=== PATIENT | female | born 1945 | race Caucasian/White ===

== ENCOUNTER → 2024-01-22 07:41 | Outpatient (REF) | payer MEDICARE, OTHER, SELFPAY | LOC: RAD 07:41 | PROVIDERS: ATTENDING PHYSICIAN Internal Medicine | DX: M81.0 Age-related osteoporosis without current pathological fracture (principal) | CPT/HCPCS: 77080 ==

== ENCOUNTER 2024-03-02 20:04 | Emergency (ER) | payer MEDICARE, OTHER, SELFPAY ==
[2024-03-02 20:15] VITALS: BP 175/83
--- NOTE | 2024-03-02 21:43 | ED.MUSCINJ ---
HPI-Injury
General
Chief Complaint: Fall
Source: patient
Exam Limitations: none
Time Seen by Provider: 03/02/24 20:37
Nursing documentation reviewed up to this point in time: agreed with
Travel History
Have you had any contact with someone who has COVID-19?: No
Do you have any symptoms of coronavirus? Fever > 100 degrees, chills, cough, shortness of breath, sore throat, loss of taste or smell, muscle aches, or headache?: No
History of Present Illness-Injury
Is this injury a work related problem?: No
Is pt an associate of [facility]?: No
Initial Injury comments:
Patient to ED with complaint of pain to her right knee. States she slpped and fell. Fell onto her knee on tile floor. Injury occurred this evening. Brought to ED by spouse for eval.
Past History
Past History
ED Past Medical History: None
Review of Systems
Review of Systems
Allergies reviewed?: Yes
All Other Systems: ROS reviewed and negative except as documented in HPI and ROS
Constitutional: Reports no symptoms
Musculoskeletal: Reports joint pain (Pain to right knee)
Skin: Reports no symptoms
Neurological: Reports no symptoms
Psychiatric: Reports no symptoms
Musculoskeletal Injury Exam
Musculoskeletal Injury Exam
Right Knee:
Pain with Movement?: Moderate
Tender to palpation?: Moderate
Soft tissue swelling?: Mild
External deformity and angulation?: None
Joint effusion?: None
Contusion?: Moderate
Hematoma-local bleeding into tissue?: Moderate
Crepitus with movement?: No
Joint instability?: No
Malalignment/deformity?: No
Range of motion: Limited
Distal skin color and temperature: normal-warm & good color
Capillary Refill: normal
Normal distal neurovascular exam?: Yes
Phy Exam
General Physical Exam
General Presentation: well appearing and no apparent distress
General age: appears stated age
General Skin: warm and dry
General Habitus: normal
General Mental: alert
Musculoskeletal Exam
Musculoskeletal Exam: neuro vasc intact and other (No pain to foot/ankle, hip.)
Skin Exam
Skin Exam: normal color, warm/dry and no rash
Psychiatric Exam
Psychiatric Exam: normal mood/affect
Injury Course
Orders/Labs/Results
Orders:
Orders
03/02/24 20:19
Knee, Right 4 or More Views [CR Knee- Right 4 Or More View*] Urgent
Comment:
Reason For Exam: fall
03/02/24 21:17
Knee Immobilizer Right-Treatme ONCE
*Radiology
Radiology exam reviewed: radiology read reviewed
*Pulse Oximetry
Patient hypoxic: no
*Critical Care Note
Total Time (30-74mins, 75-104mins- exclusive of procedures): Not Applicable
ED Attending Note
-
Portions of this chart may have been created with voice recognition software.� Occasional wrong word or��sound alike� substitutions may have occurred due to the inherent limitations of voice recognition software.
Discharge Plan
Departure
Patient Disposition: Home (Routine Discharge)
Date of Disposition: 03/02/24
Time of Disposition: 21:17
Patient with high blood pressure during this ER visit?: No
Condition: Good
Covid-19: Not Applicable
Discharge Problem:
Patella fracture
Instructions: Knee Immobilizer (DC), Patella Fracture (DC), Contusion (DC), Preventing falls in adults, Using Cold for Pain
Prescriptions:
No Action
Fosamax Plus D
70 mg PO WEEKLY
hydromorphone 2 MG tablet
2 mg PO PRN (Reason: RIGHT ANKLE PAIN)
Patient Comments:
'NOT FOR WEEKS'
Calcium
1 tab PO DAILY PRN
Patient Comments:
'NOT EVERYDAY'
Vitamin D
1 tab PO DAILY PRN
Patient Comments:
'WHEN I REMEMBER'
Referrals:
Donal Oliver MD [Active] - Call in 1-3 days for appt
Beth Cruz MD [Family Provider] -
Interventions
Interventions:
*Risk Screen - Suicide Last Done: 03/02/24 20:15
*General Assessment Last Done: 03/02/24 20:15
*ED COVID-19 Vaccine History Last Done: 03/02/24 20:15
ED-Musculoskeletal Assessment Last Done: 03/02/24 20:44
ED- Neurological Assessment Last Done: 03/02/24 20:44
ED-Skin Assessment Last Done: 03/02/24 20:44
Discharge Date and Time
Print Language: MALAY
[2024-03-02 21:59] VITALS: BP 164/95
[2024-03-02 22:07] VITALS: BP 164/95
== END 2024-03-02 22:07 | disposition home or self-care (01) ==
LOC: EMR 20:04
PROVIDERS: EMERGENCY PHYSICIAN Emergency Medicine; FAMILY PHYSICIAN Internal Medicine
DX: S82.041A Displaced comminuted fracture of right patella, initial encounter for closed fracture (principal); W18.39XA Other fall on same level, initial encounter
CPT/HCPCS: 99283; 29505; 73564

== ENCOUNTER 2024-03-06 15:54 | Inpatient (IN) | payer MEDICARE, OTHER, SELFPAY ==
[2024-03-06] VITALS (8 sets, daily range): BP systolic 124–144; BP diastolic 52–83; BMI 31.6; BMI 30.4
--- NOTE | 2024-03-06 10:29 | ED.GENMED ---
History of Present Illness
General
Chief Complaint: Dizziness
Source: patient
Exam Limitations: none
Time Seen by Provider: 03/06/24 10:29
History of Present Illness
History of Present Illness:
See MDM
Past History
Past History
ED Past Medical History: None
ED Past Surgical History: Orthopedic
Phy Exam
Physical Exam
Physical Exam:
See MDM
Scores
[id number] Score for Afib Stroke Risk
Age in Years (65=0, 65-74=1, >/=75=2): > or = 75
Sex (Female=+1): Female
Congestive Heart Failure History (Yes=+1): No
Hypertension History (Yes=+1): Yes
Stroke/TIA/Thromboembolism History (Yes=+2): Yes
Vascular Disease History (Yes=+1): No
Diabetes Mellitus (Yes=+1): No
Score: 6
Anticoagulation Recommendations: Recommend anticoagulation (as validated in nonvalvular fib)
Course
Orders/Labs/Results
Orders:
Orders
03/06/24 10:41
Electrocardiogram (*1) Urgent
Reason for Study: Vertigo / Dizzy
CT Head W/o Iv Contrast Urgent
Comment:
Reason For Exam: Dizzy
EKG- Treatment ONCE
0.9% Sodium Chloride 1000 ml [Nss] 1,000 ml IV BOLUS
Meclizine [Antivert] 25 mg PO NOW STA
Ondansetron Injectable [Zofran] 4 mg IV NOW STA
03/06/24 10:48
Complete Blood Count/With Diff Urgent
Comprehensive Metabolic Panel Urgent
03/06/24 11:27
diazePAM [Valium Injection] 2 mg IV NOW STA
03/06/24 15:10
Apixaban [Eliquis] 2.5 mg PO ONCE ONE
diazePAM [Valium Injection] 2 mg IV NOW STA
Abnormal Lab Results
03/06/24
10:48
MCH 32.0 H pg
(27.0-31.0)
BUN 21 H mg/dl
(7-17)
Glucose 133 H mg/dl
(70-99)
03/06/24 10:48
03/06/24 10:48
Vital Signs
Initial and Last Documented VS:
Initial Vital Signs
Temp Pulse Resp Pulse Ox
97.5 F 97 16 95
03/06/24 10:30 03/06/24 10:30 03/06/24 10:30 03/06/24 10:30
Last Documented Vital Signs
Temp Pulse Resp BP Pulse Ox
97.5 F 113 13 130/78 96
03/06/24 10:30 03/06/24 13:45 03/06/24 13:45 03/06/24 14:14 03/06/24 14:09
MDM/Problems Addressed
Differential Diagnosis Includes:
HPI and MDM Narrative:
78-year-old female presenting with sudden onset of dizziness. Patient denies prior history of vertigo. She is nauseous. EMS provided IV Zofran. On arrival, patient is somewhat uncomfortable appearing. She does have her eyes closed. When she
opens her eyes, she has a obvious nystagmus. It is worse with eye movement to the right. EOMI otherwise. TMs clear. She has normal finger-nose bilaterally. Given her age and new onset vertigo, will obtain CT head. Will give trial of meclizine.
If the patient remains symptomatic, will give Valium
Physical exam
General: Well appearing and non-toxic
HEENT: protecting airway. TMs clear. Horizontal nystagmus to the right
Neck: supple
CV: No evidence of cyanosis. Regular rate. Irregular rhythm
Resp: No accessory muscle use
Abd: Non-distended
Extremities: Right knee immobilizer in place. Both distal legs neurovascular intact
Neuro: alert
Psych: Normal affect
Skin: Intact
Problems Addressed including Acute and Chronic Conditions affecting care:
1. Dizziness
Acuity: acute
Prognosis: stable
Details: Likely related to peripheral vertigo. Will give meclizine and obtain CT
2. Nausea
Acuity: acute
Prognosis: stable
Details: Will give Zofran
3. New onset A-fib
Acuity: acute
Prognosis: stable
Details: Unsure of the timeline. Currently rate controlled and stable
Updates
After meclizine, patient still symptomatic. Will give dose of Valium
2 PM on reassessment after Valium, nystagmus has completely resolved and patient feeling better. Patient ambulating to the bathroom on her own
3:15 PM as patient was being discharged, the vertigo returned and she is too unsteady to did be discharged. Will give another dose of Valium and will start Eliquis given new onset A-fib
Differential Diagnosis (but not limited to): BPPV, meningitis, CVA
Testing considered: Troponin
Drug therapy (if applicable): OTC meds, please see d/c instruction regarding Rx drugs
Amount and/or Complexity of Data Reviewed
Clinical info obtained from: Patient
External data reviewed: N/A
Labs I independently reviewed (but not limited to): Hemoglobin
Radiology: The CT scan was personally and independently reviewed. In addition, official CT report reviewed.
Pulse Ox: not hypoxic
EKG independently reviewed: A-fib, normal axis, no STEMI
Travel Sales Consultant: A-fib
Critical Care: N/A
Risk of Complication:
Social Determinants of health: Good social support
Discussed with other providers: Hospitalist
Escalation of Care includes Admit/Obs: Given the recurrent vertigo, will admit
Occasional wrong word or 'sound a like' substitutions may have occurred due to the inherent limitations of voice recognition software. Read the chart carefully and recognize, using context, where substitutions have occurred.
*Critical Care Note
Total Time (30-74mins, 75-104mins- exclusive of procedures): Not Applicable
ED Attending Note
-
Portions of this chart may have been created with voice recognition software.� Occasional wrong word or��sound alike� substitutions may have occurred due to the inherent limitations of voice recognition software.
Discharge Plan
Departure
Patient Disposition: Admit
Date of Disposition: 03/06/24
Time of Disposition: 14:24
Admit to: Telemetry
Presentation/result/management discussed w/ accepting MD/DO: Hospitalist
Patient with high blood pressure during this ER visit?: No
Discharge Problem:
Vertigo, New onset a-fib
Prescriptions:
New
diazepam [Valium] 2 mg tablet
2 mg PO BID PRN (Reason: dizziness) Qty: 10 0RF
No Action
simvastatin 20 mg Tablet
20 mg PO HS
multivitamin Capsule
1 cap PO HS
losartan-hydrochlorothiazide 100-12.5 mg Tablet
1 tab PO HS
[id number]-Yskogxrps serr [Osteo Bi-Flex (5-Loxin)] 1,500-400-100 mg-unit-mg Tablet
1 tab PO HS
Azo Cranberry 250 mg Tablet,Chewable
750 mg PO HS
Referrals:
Beth Cruz MD [Family Provider] -
Interventions
Interventions:
*Risk Screen - Suicide Last Done: 03/06/24 10:30
*General Assessment Last Done: 03/06/24 10:30
*Neglect/Abuse Screening Last Done: 03/06/24 10:30
ED- Fall Risk Assessment Last Done: 03/06/24 10:37
*ED COVID-19 Vaccine History Last Done: 03/06/24 10:30
ED- Neurological Assessment Last Done: 03/06/24 10:30
ED- Cardiac Assessment Last Done: 03/06/24 10:30
ED Swallowing Screen Last Done: 03/06/24 10:37
Discharge Date and Time
Print Language: SETSWANA
[2024-03-06] MEDS: NSS 1000 IV (10:50)
[2024-03-06] MEDS: ANTIVERT 25 MG PO (10:57)
[2024-03-06] MEDS: ZOFRAN 4 MG IV (10:58)
[2024-03-06 11:04] LABS: % Basophils 1.4 % (0-2); % Eosinophils 2.6 % (0-6); % Immature Granulocytes 0.3 % (0-0.5); % Lymphocytes 35.9 % (20.5-51.1); % Monocytes 6.6 % (1.7-9.3); % Neutrophils 53.2 % (42.2-75.2); Absolute Basophils 0.1 10^3/uL (0-0.2); Absolute Eosinophils 0.2 10^3/uL (0-0.7); Absolute Lymphocytes 2.6 10^3/uL (1.2-3.4); Absolute Monocytes 0.5 10^3/uL (0.1-0.6); Absolute Neutrophils 3.9 10^3/uL (1.4-6.5); Hematocrit 40.5 % (37.0-47.0); Hemoglobin 14.1 g/dL (12.0-16.0); Mean Corp Hgb Conc. 34.8 g/dL (33.0-37.0); Mean Platelet Volume 9.9 fL (7.4-10.4); Nucleated Red Blood Cells % 0 %; Platelet Count 288 10^3/uL (130-400); Red Cell Dist. Width 12.6 % (11.5-14.5); White Blood Cell Count 7.2 10^3/uL (4.8-10.8)
[2024-03-06 11:19] LABS: ALT (SGPT) 18 U/L (0-35); AST (SGOT) 32 U/L (14-36); Albumin 3.7 g/dl (3.5-5.0); Alkaline Phosphatase 73 U/L (38-126); Blood Urea Nitrogen 21 mg/dl (7-17); Calcium 9.6 mg/dl (8.4-10.2); Carbon Dioxide 26 mmol/L (22-30); Chloride 106 mmol/L (98-107); Estimated Creatinine Clearance 54 ml/min; Glucose 133 mg/dl (70-99); Sodium 139 mmol/L (135-145); Total Bilirubin 0.9 mg/dl (0.2-1.3); Total Protein 6.3 g/dl (6.3-8.2); eGFR > 60.00
[2024-03-06] MEDS: VALIUM INJECTION 2 MG IV ×2 (11:51→15:22)
--- NOTE | 2024-03-06 15:15 | HPS.HSE ---
Addendum entered and electronically signed by Ildefonso Clements MD 03/06/24 16:32:
I saw and examined the patient.
The SEA[employer] SERVICE MEAT MANAGER or PA's note was reviewed and I agree with the note.
Comment:
Patient is a pleasant 78 years old with history of hyperlipidemia, osteoporosis, hypertension who came to the ER with dizziness/lightheadedness/headache found to be in new onset A-fib with RVR, patient also was complaining of nausea, received
Eliquis in the ER.
CT head negative
By the time I saw the patient she was in sinus rhythm.
Physical exam:
GENERAL : Patient is awake, alert, oriented x3
HEENT: Nonicteric sclerae, PERRLA, EOMI. Oropharynx clear. Moist mucous membranes. Conjunctivae appear well perfused.
CHEST: Chest wall is nontender.
HEART: Regular rate and rhythm without murmurs.
LUNGS: Clear to auscultation bilaterally.
ABDOMEN: Soft, positive bowel sounds, nontender, no organomegaly.
RECTAL: Deferred.
SKIN: No rash, no excessive bruising, petechiae, or purpura.
NEUROLOGIC: Cranial nerves II-XII intact without motor/sensory deficit.
Assessment/plan:
media monitor.
Echocardiogram.
Cardiology consult pending
MRI brain
Original Note:
Family Physician
-
Family Physician: Beth Cruz
Chief Complaint
-
dizzy
JOHNSON
blurry vision
History of Present Illness
78-year-old with past medical history for hyperlipidemia, osteoporosis, hypertension presented to us with acute onset of dizzy, lightheaded, headache dizzy. She felt the room was spinning. Patient also complaining of blurry vision. She was
nauseous and vomited couple times. Patient denied any abdominal pain, diarrhea. Patient denied any fever, chills, chest pain, short of breath. Patient denies any palpitation. Patient denied any dysuria hematuria.
Head CT negative. Patient was noted in A-fib on arrival. Got a dose of Eliquis in the ER. Patient also received meclizine in ER as well as Valium.
had a fall last week, noted to have right patellar fracture.
Medical History
Past Medical History
Past Medical History: Reports Other
Additional Past Medical History:
Hypertension
Hyperlipidemia
Osteopenia
Basal cell cancer
Left volar dislocation
Osteoporosis
hemophilia
Past Surgical History: Reports Other
Additional Past Surgical History:
Right ORIF
Bilateral cataract extraction
Tonsillectomy
Elbow surgery
Social History
Tobacco: Non-smoker
Alcohol: None
Drug: None
Personal:
Living: With Family
Family History
Family History: Not pertinent
Allergies / Home Medications
Allergies reflects when Allergies were last updated in [employer].
Home Medications with original date entered in [employer]
Allergy/Medication List:
Allergies
Allergy/AdvReac Type Severity Reaction Status Date / Time
codeine [Codeine] Allergy NAUSEA AND Verified 03/06/24 10:42
VOMITTING
Home Medications
cranberry fruit concentrate 250 mg chewable tablet (Azo Cranberry) 750 mg PO HS 03/06/24
diazepam 2 mg tablet (Valium) 2 mg PO BID PRN dizziness #10 tabs 03/06/24
glucosamine [id number]-H9-Nohgwhikl celine 1,500 mg-400 unit-100 mg tablet (Osteo Bi-Flex (5-Loxin)) 1 tab PO HS 03/06/24
losartan 100 mg-hydrochlorothiazide 12.5 mg tablet 1 tab PO HS 03/06/24
multivitamin 1 cap PO HS 03/06/24
simvastatin 20 mg tablet 20 mg PO HS 03/06/24
Review of Systems
-
Constitutional: Reports No Symptoms
EENT: Reports No Symptoms
Respiratory: Reports No Symptoms
Cardiac: Reports No Symptoms
Abdomen/GI: Reports No Symptoms
: Reports No Symptoms
Musculoskeletal: Reports No Symptoms
Skin: Reports No Symptoms
Neurological: Reports Dizzy, Headache and Other (Blurry vision)
Endocrine: Reports No Symptoms
Hematologic/Lymphatic: Reports No Symptoms
Psych: Reports No Symptoms
Physical Exam
Vital Signs
Vital Signs
Temp Pulse Resp BP Pulse Ox
97.5 F 113 13 130/78 96
03/06/24 10:30 03/06/24 13:45 03/06/24 13:45 03/06/24 14:14 03/06/24 14:09
Physical Exam
General: Well Developed, Well Nourished and No Apparent Distress
HEENT: NormoCephalic, Moist mucous membranes and Atraumatic
Respiratory: Clear
Cardiac: Irregular Rhythm and Tachycardia; No Murmur or Rub
GI: Soft, Non Tender, Non Distended and Normal Bowel Sounds; No Organomegaly
Rectal: Deferred by Provider
Musculoskeletal: No Clubbing, No Cyanosis, No Edema and Other (Right knee brace in place)
Skin: No Rash
Neuro: AO x 3 and Nonfocal/grossly intact
Psych: Calm
Laboratory Results
-
03/06/24 10:48
03/06/24 10:48
Laboratory Results
Total Bilirubin 0.9 mg/dl (0.2-1.3) 03/06/24 10:48
AST 32 U/L (14-36) 03/06/24 10:48
ALT 18 U/L (0-35) 03/06/24 10:48
Alkaline Phosphatase 73 U/L (38-126) 03/06/24 10:48
Data Reviewed
-
CT Scan: Report Reviewed by me
Lab Data: Labs Reviewed by me
Impression/Plan
-
# New onset atrial fib
-Heart rate in 100-120
-EKG with A-fib
-Obtain echo
-Initiated on Eliquis and metoprolol
-Cardiology consulted
# Vertigo
-CT head negative
-Valium and meclizine in ER
-Received Zofran in ER
-Valium and meclizine continued
-obtain MRI to r/o acute stroke
-PT/OT consult
#right patellar fracture
-has brace in place
#essential HTN
-losartan-hctz continued
#HLD
-statin continued
#DVT Prophylaxis
-eliquis
#coDE status
-full code
[2024-03-06] MEDS: ELIQUIS 2.5 MG PO (15:22)
[2024-03-06] MEDS: LIPITOR 10 MG PO (21:30)
[2024-03-06] MEDS: HYZAAR 100-12.5 TABLET 1 TAB PO (21:32)
[2024-03-07 03:55] VITALS: BP 135/61
[2024-03-07 07:20] VITALS: BP 149/70
[2024-03-07 08:02] LABS: Hematocrit 39.8 % (37.0-47.0); Hemoglobin 13.5 g/dL (12.0-16.0); Mean Corp Hgb Conc. 33.9 g/dL (33.0-37.0); Mean Corpuscular Hgb 32.4 pg (27.0-31.0); Mean Corpuscular Volume 95.4 fL (81.0-99.0); Platelet Count 252 10^3/uL (130-400); Red Blood Cell Count 4.17 10^6/uL (4.20-5.40); Red Cell Dist. Width 12.9 % (11.5-14.5); White Blood Cell Count 7.4 10^3/uL (4.8-10.8)
[2024-03-07 08:46] LABS: Blood Urea Nitrogen 19 mg/dl (7-17); Calcium 9.3 mg/dl (8.4-10.2); Carbon Dioxide 27 mmol/L (22-30); Chloride 104 mmol/L (98-107); Estimated Creatinine Clearance 53 ml/min; Glucose 88 mg/dl (70-99); HDL Cholesterol 55 mg/dl; LDL Cholesterol, Calculated 76 mg/dl; Potassium 3.9 mmol/L (3.5-5.1); Sodium 138 mmol/L (135-145); Total Cholesterol 146 mg/dl (50-199); Triglyceride 75 mg/dl (10-149); Very Low Density Lipoprotein 15 mg/dl (0-30); eGFR > 60.00
[2024-03-07] MEDS: ELIQUIS 5 MG PO (09:14)
[2024-03-07 11:04] VITALS: BP 114/68
--- NOTE | 2024-03-07 12:25 | W.PN.UPDATE ---
Addendum entered and electronically signed by Wolf Sanchez MD 03/07/24 12:30:
Stop ASA
Original Note:
Update Note
Progress Note Update
Consult dictated
New PAF, back to sinus in ER
- [id number] at least 6 (HTN, age2, pulm embolus, female gender) => agree with Eliquis, I reviewed bleeding risks/signs/symptoms
- Can progress to ablation if symptoms warrant or patient desires => more education in my office
- I will again review modifiable AFib risk factors in office (ETOH, sedentary lifestyle, sleep apnea, etc)
New Vertigo, MRI negative
HTN
Mixed hyperlipidemia
We will arrange f/u in my office, echo, and 2 week monitor.
Please call with questions
--- NOTE | 2024-03-07 13:16 | W.PN.HOSP.TC ---
Addendum entered and electronically signed by Fred Manley MD 03/07/24 15:44:
[id number]
Original Note:
Today's Communication/Plan
-
Eliquis
stop ASA
f/u cards for ECHO, 2 week monitor
Assessment / Plan
Assessment / Plan
GENERAL : Patient is awake, alert, oriented x3
HEENT: Nonicteric sclerae, PERRLA, EOMI. Oropharynx clear. Moist mucous membranes. Conjunctivae appear well perfused.
CHEST: Chest wall is nontender.
HEART: Regular rate and rhythm without murmurs.
LUNGS: Clear to auscultation bilaterally.
ABDOMEN: Soft, positive bowel sounds, nontender, no organomegaly.
RECTAL: Deferred.
SKIN: No rash, no excessive bruising, petechiae, or purpura.
NEUROLOGIC: Cranial nerves II-XII intact without motor/sensory deficit.
# New onset atrial fib
-can hold on BB for now as per cardiology- until cardiology f/u
-Start Eliquis 5mg BID
-ECHO and 2 week monitor outpatient
-cards consulted, f/u cards outpatient
# ?Vertigo
-most likely sequela of afib
-cont to monitor outpatient
-PT/OT
-MRI unremarkable for acute pathology
#right patellar fracture
-has brace in place
#essential HTN
-losartan-hctz continued
#HLD
-statin continued
#DVT Prophylaxis
-eliquis
#coDE status
-full code
More than 30 minutes spent in discharge including
Final examination of the patient
Summarizing hospital stay
Instructions for continuing care to all relevant caregivers
Preparation of discharge records, prescriptions, and referral forms
Total time spent (35 in minutes):
Anticipated Discharge: Today
Subjective/Interval History
-
Date of Service: March 07, 2024
No acute events overnight
Objective Data
-
Labs:
Laboratory Results
03/07/24
07:08
WBC 7.4
Hgb 13.5
Hct 39.8
Plt Count 252
Sodium 138
Potassium 3.9
Chloride 104
Carbon Dioxide 27
BUN 19 H
Creatinine 0.8
Glucose 88
Calcium 9.3
Vital Signs:
Vital Signs
Temp Pulse Resp BP Pulse Ox
98 F 72 20 114/68 94
03/07/24 11:04 03/07/24 11:04 03/07/24 11:04 03/07/24 11:04 03/07/24 11:04
Review of Systems
-
History Source: Patient
All other systems: Not reviewed unless documented
Data Reviewed
-
MRI: Image personally visualized and interpreted and Report Reviewed by me
Labs: Labs Reviewed by me
--- NOTE | 2024-03-07 13:21 | W.DS.TRANS ---
DC Summary - Signal Constructor
-
Discharge Instructions:
Discharge Diagnosis/Procedures New onset atrial fibrillation
Diet Low Fat,Low Cholesterol
Activity As tolerated
Instructions:
Stand-Alone Forms:
Changes to Home Medications: Yes
Discharge Medications:
DC Medications w/original date entered in [employer]
Multivitamin Women 50 Plus 1 tab PO 03/06/24
cranberry fruit concentrate 250 mg chewable tablet (Azo Cranberry) 750 mg PO 03/06/24
diazepam 2 mg tablet (Valium) 2 mg PO BID PRN dizziness #10 tabs 03/06/24
glucosamine [id number]-Czqswojfr celine 1,500 mg-400 unit-100 mg tablet (Osteo Bi-Flex (5-Loxin)) 1 tab PO 03/06/24
losartan 100 mg-hydrochlorothiazide 12.5 mg tablet 1 tab PO 03/06/24
simvastatin 20 mg tablet 20 mg PO 03/06/24
apixaban 5 mg tablet (Eliquis) 5 mg PO BID 30 days #60 tabs 03/07/24
Home Medication Changes
apixaban 5 mg tablet (Eliquis) 5 mg PO BID 30 days #60 tabs 03/07/24
Pending Results: No
--- NOTE | 2024-03-07 14:07 | CM ---
Addendum entered by Maura Murphy 03/07/24 14:35:
Patient original pharmacy is closed, patient given coupon [facility]
Original Note:
Patient seen at bedside with patient son also present. Patient lives in a 2 story home with no DME at home. 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 Patient changed Pharmacy to [facility] on [address] in [place]
and it closes at 5pm. CM updated the [facility] system and physician made aware. IMM completed by admissions 03/06/24. Dr. Cruz is the PCP and patient declined needs. CM will continue to follow for discharge planning needs.
Plan; home with no needs.
--- NOTE | 2024-03-07 14:28 | W.DS.TRANS ---
DC Summary - Consultant
-
Discharge Instructions:
Discharge Diagnosis/Procedures New onset atrial fibrillation
Diet Low Fat,Low Cholesterol
Activity As tolerated
Instructions:
Stand-Alone Forms:
Changes to Home Medications: Yes
Discharge Medications:
DC Medications w/original date entered in [employer]
Multivitamin Women 50 Plus 1 tab PO 03/06/24
cranberry fruit concentrate 250 mg chewable tablet (Azo Cranberry) 750 mg PO 03/06/24
diazepam 2 mg tablet (Valium) 2 mg PO BID PRN dizziness #10 tabs 03/06/24
glucosamine [id number]-Fphlxhfzj celine 1,500 mg-400 unit-100 mg tablet (Osteo Bi-Flex (5-Loxin)) 1 tab PO 03/06/24
losartan 100 mg-hydrochlorothiazide 12.5 mg tablet 1 tab PO 03/06/24
simvastatin 20 mg tablet 20 mg PO 03/06/24
apixaban 5 mg tablet (Eliquis) 5 mg PO BID 30 days #60 tabs 03/07/24
Home Medication Changes
apixaban 5 mg tablet (Eliquis) 5 mg PO BID 30 days #60 tabs 03/07/24
Pending Results: No
[2024-03-07 15:08] LABS: TSH Reflex To Free T4 1.59 uIU/ml (0.47-4.68)
== END 2024-03-07 15:25 | disposition home or self-care (01) | DRG 309 ==
LOC: 4 EAST ACU 15:54
PROVIDERS: Registered Nurse; ADMITTING PHYSICIAN General Practice; ATTENDING PHYSICIAN Internal Medicine; CONSULT PHYSICIAN Internal Medicine Cardiovascular Disease; EMERGENCY PHYSICIAN Student in an Organized Health Care Education/Training Program; FAMILY PHYSICIAN Internal Medicine
DX: I48.0 Paroxysmal atrial fibrillation (principal); S82.001A Unspecified fracture of right patella, initial encounter for closed fracture; Z79.01 Long term (current) use of anticoagulants; I11.0 Hypertensive heart disease with heart failure; I50.9 Heart failure, unspecified; E78.2 Mixed hyperlipidemia
CPT/HCPCS: 70450; 70551; 80048; 80053; 80061; 84443; 85025; 85027; 93005; 96361; 96374; 96375; 96376; 99285

== ENCOUNTER 2024-03-25 09:07 | Outpatient (RCR) | payer MEDICARE, OTHER, SELFPAY | END 2024-03-25 23:59 | disposition home or self-care (01) | LOC: RPT 09:07 | PROVIDERS: ATTENDING PHYSICIAN Internal Medicine | DX: R42 Dizziness and giddiness (principal); Z73.6 Limitation of activities due to disability | CPT/HCPCS: 97162 ==

== ENCOUNTER → 2024-04-07 12:39 | Outpatient (REF) | payer MEDICARE, OTHER, SELFPAY | LOC: HWRCS 12:39 | PROVIDERS: ATTENDING PHYSICIAN Internal Medicine Cardiovascular Disease; FAMILY PHYSICIAN Internal Medicine | DX: I10 Essential (primary) hypertension (principal); E78.5 Hyperlipidemia, unspecified; I48.0 Paroxysmal atrial fibrillation | CPT/HCPCS: 93306 ==

== ENCOUNTER → 2024-08-17 14:00 | Outpatient (REF) | payer MEDICARE, OTHER, SELFPAY | LOC: WDC 14:00 | PROVIDERS: ATTENDING PHYSICIAN Obstetrics & Gynecology; FAMILY PHYSICIAN Internal Medicine | DX: Z12.31 Encounter for screening mammogram for malignant neoplasm of breast (principal) | CPT/HCPCS: 77063; 77067 ==

== ENCOUNTER → 2025-09-12 10:14 | Outpatient (REF) | payer MEDICARE, OTHER, SELFPAY | LOC: HWWDC 10:14 | PROVIDERS: ATTENDING PHYSICIAN Internal Medicine | DX: Z12.31 Encounter for screening mammogram for malignant neoplasm of breast (principal) | CPT/HCPCS: 77063; 77067 ==